=== PATIENT | female | born 1945 | race Caucasian/White ===

== ENCOUNTER → 2017-01-22 | Outpatient (CLI) | payer MEDICARE, OTHER ==
[~2017-01-22] MED LIST: ASPIRIN325 M1 PO; ASPIRIN81 M1 PO; AUGMENTIN PO; BACLOFEN10 MG PO; BENAZEPRIL HCL10 MG PO; BENAZEPRIL HCL5 MG PO; FISH OIL 1,0001 CA2 PO; FISH OIL500 M1 PO; HYDROCODON-ACE1 EAC5 PO; LIPITOR PO; METFORMIN HCL500 M1 PO; MULTI-DAY VITAM1 TAB PO; MULTIVITAMIN1 UDCAP PO; SERTRALINE HCL50 MG PO; SIMVASTATIN40 MG PO; ZYRTEC10 M2 PO
--- NOTE | ~2017-01-22 | EKG ---
PATIENT: MEHDI CLARK UNIT #: [id number] Ventricular Rate: 63 BPM Atrial Rate: 63 BPM P-R Interval: 162 ms QRS Duration: 64 ms Q-T Interval: 394 ms QTC Calculation(Bezet): 403 ms P [place]: 83 degrees Calculated R [place]: -5 degrees Calculated T [place]: 23 degrees Diagnosis Line: Normal sinus rhythm Diagnosis Line: Nonspecific ST abnormality Diagnosis Line: Abnormal ECG Diagnosis Line: When compared with ECG of 29-DEC-2012 09:27, Diagnosis Line: Questionable change in QRS axis Diagnosis Line: Confirmed by BASILIO CAMPO MD ([id number]) on 01/23/2017 Diagnosis Line: 7:16:12 AM INTERPRETING MD: ALBER AVITIA
[2017-01-22 12:27] LABS: HEMATOCRIT 37.9 % (35.0-45.0); HEMOGLOBIN 12.4 gm/dL (12.0-16.0); MEAN CORPUSCULAR HEMOGLOBIN 29.1 PG (28-34); MEAN CORPUSCULAR HGB CONC 32.7 g/dL (30-36); MEAN PLATELET VOLUME 8.2 FL (6.5-11.5); RED BLOOD COUNT 4.27 X10e (3.90-5.30); RED CELL DISTRIBUTION WIDTH 14.6 % (11.0-15.5); WHITE BLOOD COUNT 5.5 X10e3 (4.0-10.5)
[2017-01-22 13:50] LABS: CALCIUM SERUM 9.3 mg/dL (8.4-10.2); GLOM FILT RATE Estimated 55.9 mL/min (>60); POTASSIUM 4.4 mmol/L (3.5-5.1)
== END | disposition home or self-care (01) ==
LOC: CLAB 12:03
PROVIDERS: Urology
DX: Z01.818 Encounter for other preprocedural examination (principal); C67.1 Malignant neoplasm of dome of bladder; I10 Essential (primary) hypertension; E11.9 Type 2 diabetes mellitus without complications; R94.31 Abnormal electrocardiogram [ECG] [EKG]
CPT/HCPCS: 36415; 80048; 85027; 93005